=== PATIENT | male | born 1955 | race Caucasian/White ===

== ENCOUNTER → 2016-09-11 | Outpatient (CLI) | payer OTHER ==
[~2016-09-11] MED LIST: ALDACTONE50 MG PO; AVODART0.5 MG PO; CALCIUM CARB1 TABLET PO; CO Q-10200 MG PO; FINASTERIDE5 MG PO; FLOMAX0.4 MG PO; LO-DOSE ASPIRIN81 M2 PO; LOPRESSOR50 MG PO; MAGNESIUM400 M1 PO; MULTI-VITAMIN1 EAC4 PO; OMEPRAZOLE40 M1 PO; OXAYDO5 MG PO; POTASSIUM CHLO10 ME3 PO; SIMVASTATIN20 MG PO; VALSARTAN320 MG PO; VITAMIN B CO1 TABLET PO; VITAMIN D31000 UNI2 PO; ZOLOFT50 MG PO
== END | disposition home or self-care (01) ==
LOC: EDSTATUS 13:15 → RAD 13:15
PROC: 0W9G3ZZ Drainage of Peritoneal Cavity, Percutaneous Approach (ICD-10-PCS; principal; 2016-09-11)
DX: K70.31 Alcoholic cirrhosis of liver with ascites (principal)
CPT/HCPCS: P9047

== ENCOUNTER → 2016-09-25 | Outpatient (CLI) | payer OTHER | END | disposition home or self-care (01) | LOC: RAD 13:12 → EDSTATUS 13:15 → RAD 13:15 | PROC: 0W9G3ZZ Drainage of Peritoneal Cavity, Percutaneous Approach (ICD-10-PCS; principal; 2016-09-25) | DX: R18.8 Other ascites (principal) | CPT/HCPCS: P9047 ==

== ENCOUNTER → 2016-10-06 | Outpatient (CLI) | payer OTHER | END | disposition home or self-care (01) | LOC: RAD 08:30 | PROC: 0W9G3ZZ Drainage of Peritoneal Cavity, Percutaneous Approach (ICD-10-PCS; principal; 2016-10-06) | DX: R18.8 Other ascites (principal) | CPT/HCPCS: P9047 ==

== ENCOUNTER → 2016-10-17 | Outpatient (CLI) | payer OTHER | END | disposition home or self-care (01) | LOC: RAD 13:14 | PROC: 0W9G3ZZ Drainage of Peritoneal Cavity, Percutaneous Approach (ICD-10-PCS; principal; 2016-10-17) | DX: R18.8 Other ascites (principal) | CPT/HCPCS: P9047 ==

== ENCOUNTER → 2016-10-25 | Outpatient (CLI) | payer OTHER | END | disposition home or self-care (01) | LOC: RAD 10-24 13:15 | PROC: 0W9G3ZZ Drainage of Peritoneal Cavity, Percutaneous Approach (ICD-10-PCS; principal; 2016-10-25) | DX: R18.8 Other ascites (principal) | CPT/HCPCS: P9047 ==

== ENCOUNTER → 2016-11-01 | Outpatient (CLI) | payer OTHER ==
[~2016-11-01] MED LIST changes: +ATARAX,VISTARIL50 MG PO
== END | disposition home or self-care (01) ==
LOC: RAD 10-31 13:15
PROC: 0W9G3ZZ Drainage of Peritoneal Cavity, Percutaneous Approach (ICD-10-PCS; principal; 2016-11-01)
DX: R18.8 Other ascites (principal)
CPT/HCPCS: P9047

== ENCOUNTER → 2016-11-08 | Outpatient (CLI) | payer OTHER | END | disposition home or self-care (01) | LOC: RAD 11-07 13:15 | PROC: 0W9G3ZZ Drainage of Peritoneal Cavity, Percutaneous Approach (ICD-10-PCS; principal; 2016-11-08) | DX: R18.8 Other ascites (principal) | CPT/HCPCS: P9047 ==

== ENCOUNTER → 2016-11-15 | Outpatient (CLI) | payer OTHER | END | disposition home or self-care (01) | LOC: RAD 08:30 | PROC: 0W9G3ZZ Drainage of Peritoneal Cavity, Percutaneous Approach (ICD-10-PCS; principal; 2016-11-15) | DX: R18.8 Other ascites (principal) | CPT/HCPCS: P9047 ==

== ENCOUNTER → 2016-11-22 | Outpatient (CLI) | payer OTHER | END | disposition home or self-care (01) | LOC: RAD 08:30 | PROC: 0W9G3ZZ Drainage of Peritoneal Cavity, Percutaneous Approach (ICD-10-PCS; principal; 2016-11-22) | DX: R18.8 Other ascites (principal) ==

== ENCOUNTER → 2016-11-29 | Outpatient (CLI) | payer OTHER | END | disposition home or self-care (01) | LOC: RAD 08:30 | PROC: 0W9G3ZZ Drainage of Peritoneal Cavity, Percutaneous Approach (ICD-10-PCS; principal; 2016-11-29) | DX: R18.8 Other ascites (principal) | CPT/HCPCS: P9047 ==

== ENCOUNTER → 2016-12-07 | Outpatient (CLI) | payer OTHER | END | disposition home or self-care (01) | LOC: RAD 12-06 08:30 | PROC: 0W9G3ZZ Drainage of Peritoneal Cavity, Percutaneous Approach (ICD-10-PCS; principal; 2016-12-07) | DX: R18.8 Other ascites (principal) | CPT/HCPCS: P9047 ==

== ENCOUNTER → 2016-12-20 | Outpatient (CLI) | payer OTHER | END | disposition home or self-care (01) | LOC: RAD 13:10 | PROC: 0W9G3ZZ Drainage of Peritoneal Cavity, Percutaneous Approach (ICD-10-PCS; principal; 2016-12-20) | DX: R18.8 Other ascites (principal) | CPT/HCPCS: P9047 ==

== ENCOUNTER → 2016-12-27 | Outpatient (CLI) | payer OTHER | END | disposition home or self-care (01) | LOC: RAD 13:07 | PROC: 0W9G3ZZ Drainage of Peritoneal Cavity, Percutaneous Approach (ICD-10-PCS; principal; 2016-12-27) | DX: R18.8 Other ascites (principal) ==

== ENCOUNTER → 2017-01-10 | Outpatient (CLI) | payer OTHER ==
[~2017-01-10] MED LIST changes: +LASIX40 MG PO
== END | disposition home or self-care (01) ==
LOC: RAD 13:15
PROC: 0W9G3ZZ Drainage of Peritoneal Cavity, Percutaneous Approach (ICD-10-PCS; principal; 2017-01-10)
DX: R18.8 Other ascites (principal)

== ENCOUNTER → 2017-01-24 | Outpatient (CLI) | payer OTHER | END | disposition home or self-care (01) | LOC: RAD 13:08 | PROC: 0WJG3ZZ Inspection of Peritoneal Cavity, Percutaneous Approach (ICD-10-PCS; principal; 2017-01-24) | DX: Z53.09 Procedure and treatment not carried out because of other contraindication (principal) | CPT/HCPCS: 76705 ==

== ENCOUNTER → 2017-02-07 | Outpatient (CLI) | payer OTHER | END | disposition home or self-care (01) | LOC: RAD 12-13 08:30 | PROC: 0WJG3ZZ Inspection of Peritoneal Cavity, Percutaneous Approach (ICD-10-PCS; principal; 2017-02-07) | DX: R18.8 Other ascites (principal); Z53.09 Procedure and treatment not carried out because of other contraindication | CPT/HCPCS: 76705 ==

== ENCOUNTER → 2017-02-21 | Outpatient (CLI) | payer OTHER | END | disposition home or self-care (01) | LOC: RAD 13:09 | PROC: 0W9G3ZZ Drainage of Peritoneal Cavity, Percutaneous Approach (ICD-10-PCS; principal; 2017-02-21) | DX: R18.8 Other ascites (principal) ==

== ENCOUNTER → 2017-03-14 | Outpatient (CLI) | payer OTHER | END | disposition home or self-care (01) | LOC: RAD 01-31 13:15 | PROC: 0WJG3ZZ Inspection of Peritoneal Cavity, Percutaneous Approach (ICD-10-PCS; principal; 2017-03-14) | DX: R18.8 Other ascites (principal); Z53.09 Procedure and treatment not carried out because of other contraindication | CPT/HCPCS: 76705 ==

== ENCOUNTER 2018-02-03 14:20 | Emergency (ER) | payer OTHER ==
[~2018-02-03] VITALS: Ht 182.9 cm; Wt 113.8 kg
[2018-02-03] MEDS ORDERED: KEFLEX500 MG PO (16:51)
[2018-02-03 17:02] VITALS: BP 132/88
== END 2018-02-03 17:05 | disposition home or self-care (01) ==
LOC: EXP 14:20 → EME 14:20 → EXP 17:05
DX: M25.561 Pain in right knee (principal); L03.115 Cellulitis of right lower limb; I10 Essential (primary) hypertension; K74.60 Unspecified cirrhosis of liver; R56.9 Unspecified convulsions; Z85.72 Personal history of non-Hodgkin lymphomas; Z87.19 Personal history of other diseases of the digestive system; Z88.0 Allergy status to penicillin
CPT/HCPCS: 73564; 99281; 99284